=== PATIENT | female | born 1940 | race Caucasian/White ===

== ENCOUNTER 2016-06-19 17:18 | Emergency (ER) | payer OTHER ==
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
--- NOTE | 2016-06-19 18:11 | ED ORDER SUMMARY ---
..... Patient: THELMA BENJAMIN OrderSheet [facility] VisitID: [id number] [address] [place] [address] 75y, F Registration Date/Time: 06/19/2016 ORDER SHEET Weight: 110.6 kg (stated) Allergies: Arthritis medications, ABX not sure of name GENERAL ORDERS: MEDICATION ORDERS: Lidocaine Injection 1% plain (NOW) (17:35 06/19/2016 RJivens A.R.N.P.) (Ack 17:42 JBoardley R.N.) (17:55 JBoardley R.N.) Txvzphm-Ltelrx-Qbucy Pertussis IM 0.5 mL (NOW) (17:41 06/19/2016 Mildred R.N. per protocol) (17:42 JBoardley R.N.) IV FLUIDS: ORDER SHEET NOTES: [Electronically signed by Melisa Badillo R.N. (18:30 06/19/2016)] [Electronically signed by Shea AlmodovarR.N.PFab (19:03 06/19/2016)] [Electronically locked/signed by Melisa Badillo R.N. (18:30 06/19/2016)]
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
--- NOTE | 2016-06-19 18:11 | ED ORDER SUMMARY ---
..... Patient: THELMA BENJAMIN OrderSheet [facility] VisitID: [id number] [address] [place] [address] 75y, F Registration Date/Time: 06/19/2016 ORDER SHEET Weight: 110.6 kg (stated) Allergies: Arthritis medications, ABX not sure of name GENERAL ORDERS: MEDICATION ORDERS: Lidocaine Injection 1% plain (NOW) (17:35 06/19/2016 RJivens A.R.N.P.) (Ack 17:42 JBoardley R.N.) (17:55 JBoardley R.N.) Jmdrhga-Rpfyem-Wiyxq Pertussis IM 0.5 mL (NOW) (17:41 06/19/2016 Mildred R.N. per protocol) (17:42 JBoardley R.N.) IV FLUIDS: ORDER SHEET NOTES: [Electronically signed by Melisa Badillo R.N. (18:30 06/19/2016)] [Electronically signed by Shea AlmodovarR.N.PFab (19:03 06/19/2016)] [Electronically locked/signed by Melisa Badillo R.N. (18:30 06/19/2016)]
--- NOTE | 2016-06-19 19:04 | ED MAR SUMMARY ---
..... Medication Administration Record [facility] [address] [place] [address] Patient: THELMA BENJAMIN Visit ID: [id number] 75y, F Weight: 110.6 kg Height/Length: 60 in BMI: 47.6 ALLERGIES: ABX not sure of name, Arthritis medications Given 17:32 06/19/2016 Hayden Gutiérrez RMilady Medication Administered: IVOXZDJ-AGJKVR-ZLJRS PERTUSSIS [IM], Dose: 0.5 mL IM. Medication Ordered: Tjtpvyn-Ifksje-Dksuj Pertussis IM 0.5 mL (NOW). Given 17:40 06/19/2016 Hayden Gutiérrez RFabN. Medication Administered: LIDOCAINE [INJECTION], Dose: 1 % Injectable Injection. Medication Ordered: Lidocaine Injection 1% plain (NOW).
--- NOTE | 2016-06-19 19:04 | ED MED RECONCILIATION SUMMARY ---
Patient: THELMA BENJAMIN Medication Reconciliation Report [facility] VisitID: [id number] [place] [address] 75y, F Registration Date/Time: 06/19/2016 Weight: 110.6 kg Height/Length: 60 in. BMI: 47.6 ALLERGIES: ABX not sure of name, Arthritis medications The patient's Home Medications are listed below: THE FOLLOWING MEDICATIONS NEED TO BE RECONCILED: Allergy Oral (4 mg) 1 tablet, morning AmLODIPine Besylate Oral (10 mg) 1 tablet, daily Aspirin Oral (81 mg) 1 tablet, daily CoQ-10 Oral (100 mg) 1 capsule, daily Fish Oil Oral (1000 mg) 1 capsule, 2 x day Hydrochlorothiazide Oral (25 mg) 1 tablet, daily Levothyroxine Sodium Oral (50 mcg) 1 tablet, daily Lisinopril Oral (20 mg) 2 tablets, at bedtime Metoprolol Tartrate Oral (50 mg) 1 tablet, 2 x day Norvasc Oral (10 mg) 2 tablets, daily Omeprazole Oral (20 mg) 1 capsule, daily Potassium Chloride ER Oral (10 meq) 2 capsules, daily Pravastatin Sodium Oral (40 mg) 1 tablet, daily The source(s) of the original Home Medication information: Not obtained. The following Medications were given to the patient in the Emergency Department: NOBLULL-PLYIUL-SXXTT PERTUSSIS [IM] IM 0.5 mL, administered: 06/19/2016 5:32:00 PM Lidocaine [Injection] Injection 1 %, administered: 06/19/2016 5:40:00 PM The following Medications were prescribed to the patient: None.
--- NOTE | 2016-06-19 19:04 | ED MAR SUMMARY ---
..... Medication Administration Record [facility] [address] [place] [address] Patient: THELMA BENJAMIN Visit ID: [id number] 75y, F Weight: 110.6 kg Height/Length: 60 in BMI: 47.6 ALLERGIES: ABX not sure of name, Arthritis medications Given 17:32 06/19/2016 Hayden Gutiérrez RMilady Medication Administered: CCVGPJB-XUNTRB-ESEEA PERTUSSIS [IM], Dose: 0.5 mL IM. Medication Ordered: Hknvsxt-Fxcier-Gprsc Pertussis IM 0.5 mL (NOW). Given 17:40 06/19/2016 Hayden Gutiérrez RFabN. Medication Administered: LIDOCAINE [INJECTION], Dose: 1 % Injectable Injection. Medication Ordered: Lidocaine Injection 1% plain (NOW).
--- NOTE | 2016-06-19 19:04 | ED MED RECONCILIATION SUMMARY ---
Patient: THELMA BENJAMIN Medication Reconciliation Report [facility] VisitID: [id number] [place] [address] 75y, F Registration Date/Time: 06/19/2016 Weight: 110.6 kg Height/Length: 60 in. BMI: 47.6 ALLERGIES: ABX not sure of name, Arthritis medications The patient's Home Medications are listed below: THE FOLLOWING MEDICATIONS NEED TO BE RECONCILED: Allergy Oral (4 mg) 1 tablet, morning AmLODIPine Besylate Oral (10 mg) 1 tablet, daily Aspirin Oral (81 mg) 1 tablet, daily CoQ-10 Oral (100 mg) 1 capsule, daily Fish Oil Oral (1000 mg) 1 capsule, 2 x day Hydrochlorothiazide Oral (25 mg) 1 tablet, daily Levothyroxine Sodium Oral (50 mcg) 1 tablet, daily Lisinopril Oral (20 mg) 2 tablets, at bedtime Metoprolol Tartrate Oral (50 mg) 1 tablet, 2 x day Norvasc Oral (10 mg) 2 tablets, daily Omeprazole Oral (20 mg) 1 capsule, daily Potassium Chloride ER Oral (10 meq) 2 capsules, daily Pravastatin Sodium Oral (40 mg) 1 tablet, daily The source(s) of the original Home Medication information: Not obtained. The following Medications were given to the patient in the Emergency Department: PUZGGDJ-IMZNIY-EJPKX PERTUSSIS [IM] IM 0.5 mL, administered: 06/19/2016 5:32:00 PM Lidocaine [Injection] Injection 1 %, administered: 06/19/2016 5:40:00 PM The following Medications were prescribed to the patient: None.
--- NOTE | 2016-06-19 19:04 | ED DISCHARGE INSTRUCTIONS ---
Patient: THELMA BENJAMIN General Instructions [facility] VisitID: [id number] [place] [address] 75y, F Registration Date/Time: 06/19/2016 Single deep laceration to the left lower leg.Treatment of laceration not delayed. No infection or foreign body present. INSTRUCTIONS Protect wound and keep wound area clean. Change dressing twice daily. Soak in warm soapy water twice daily. Apply bacitracin twice daily. [place] should be removed in twelve days. Warnings: TETANUS: You were given a tetanus shot during your visit. Make a note for future reference. GENERAL WARNINGS: Return or contact your physician immediately if your condition worsens or changes unexpectedly, if not improving as expected, or if other problems arise. Specifically return if problem worsens. Follow-up: Follow up with your doctor in about three days even if well and for staple removal and wound check. Call for an appointment. Reason for referral: mervat need to be removed in approx 12 days. Summary of care provided to patient. Understanding of the discharge instructions verbalized by patient. ADDITIONAL INFORMATION Laceration (All Closures) Alaceration is a cut through the skin. This will usually require stitches (sutures) or mervat if it is deep. Minor cuts may be treated with a surgical tape closure orskin glue. Home care The following guidelines will help you care for your laceration at home: Extremity, face, or trunk wounds Keep the wound clean and dry. If a bandage was applied and it becomes wet or dirty, replace it. Otherwise, leave it in place for the first 24 hours. If stitches or mervat were used, clean the wound daily. After removing the bandage, wash the area with soap and water. Use a wet cotton swab to loosen and remove any blood or crust that forms. The doctor may prescribe an antibiotic cream or ointment to prevent infection. Do not stop taking this medication until you have finished the prescribed course or the doctor tells you to stop. The doctor may also prescribe medications for pain. Follow the doctors instructions for taking these medications. You may remove the bandage to shower as usual after the first 24 hours, but do not soak the area in water (no swimming) until the stitches or mervat are removed. If surgical tape was used, keep the area clean and dry. If it becomes wet, blot it dry with a towel. If skin glue was used, do not scratch, rub, or pick at the adhesive film. Do not place tape directly over the film. Do not apply liquid, ointment, or creams to the wound while the film is in place. Do not clean the wound with peroxide and do not apply ointments. Avoid activities that cause heavy sweating until the film has fallen off. Protect the wound from prolonged exposure to sunlight or tanning lamps. You may shower as usual but do not soak the wound in water (no baths or swimming). The film will fall off by itself in 510 days. Scalp wounds During the first two days, you may carefully rinse your hair in the shower to remove blood, glass or dirt particles. After two days, you may shower and shampoo your hair normally. Do not soak your scalp in the tub or go swimming until the stitches or mervat have been removed. Talk with your doctor before applying any antibiotic ointment to the wound. Mouth wounds Eat soft foods to reduce pain. If the cut is inside of your mouth, clean by rinsing after each meal and at bedtime with a mixture of equal parts water and hydrogen peroxide (do not swallow!). Or, you can use a cotton swab to directly apply hydrogen peroxide onto the cut. Mouth wounds can be painful when eating. You may use an [id number] local numbing solution for pain relief. If this is not available, you may use any numbing solution for teething babies. You may apply this directly to the sores with a cotton-tip swab or with your finger. Follow-up care Follow up with your health care provider. Most skin wounds heal within ten days. Mouth and facial wounds heal within five days. However, even with proper treatment, a wound infection may sometimes occur. Therefore, you should check the wound daily for signs of infection listed below. Stitches should be removed from the face within five days; stitches and mervat should be removed from other parts of the body within 714 days. If dissolving stitches were used in the mouth, these will fall out or dissolve without the need for removal. If tape closures were used, remove them yourself if they have not fallen off after 7 days. Ifskin glue was used, the film will fall off by itself in 510 days. When to seek medical care Get prompt medical attention if any of these occur: Bleeding not controlled by direct pressure Signs of infection, including increasing pain in the wound, increasing wound redness or swelling, or pus coming from the wound Fever of 100.4F (38C) or higher, or as directed by your health care provider Stitches or mervat come apart or fall out or surgical tape falls off before 7 days Wound edges re-open Laceration, Extremity (Sutures, [place], Or Tape) A laceration is a cut through the skin. This will usually require stitches (sutures) or mervat if it is deep. Minor cuts may be treated with surgical tape closures. Home care The following guidelines will help you care for your laceration at home: Keep the wound clean and dry. If a bandage was applied and it becomes wet or dirty, replace it. Otherwise, leave it in place for the first 24 hours, then change it once a day or as directed. If stitches or mervat were used, clean the wound daily: After removing the bandage, wash the area with soap and water. Use a wet cotton swab to loosen and remove any blood or crust that forms. After cleaning, keep the wound clean and dry. Talk with your doctor before applying any antibiotic ointment to the wound. Reapply the bandage. You may remove the bandage to shower as usual after the first 24 hours, but do not soak the area in water (no swimming) until the stitches or mervat are removed. If surgical tape closures were used, keep the area clean and dry. If it becomes wet, blot it dry with a towel. The doctor may prescribe an antibiotic cream or ointment to prevent infection. Do not stop taking this medication until you have finished the prescribed course or the doctor tells you to stop. The doctor may also prescribe medications for pain. Follow the doctors instructions for taking these medications. If you have chronic liver or kidney disease or ever had a stomach ulcer or GI bleeding, talk with your doctor before using these medicines. Follow-up care Follow up with your health care provider. Most skin wounds heal within ten days. However, an infection may sometimes occur despite proper treatment. Therefore, check the wound daily for the signs of infection listed below. Stitches and mervat should be removed within 714 days. If surgical tape closures were used, you may remove them after 10 days, if they have not fallen off by then. Notify your doctor if you notice persistent numbness or weakness in the injured extremity. (Note:A radiologist will review any X-rays that were taken. We will notify you of any new findings that may affect your care.) When to seek medical care Get prompt medical attention if any of these occur: Increasing pain in the wound Redness, swelling, or pus coming from the wound Fever of 100.4F (38C) or higher, or as directed by your health care provider If stitches or mervat come apart or fall out before your next appointment If the surgical tape closures fall off within seven days, or the wound edges re-open Bleeding not controlled by direct pressure Diphtheria Toxoid Adsorbed, Pertussis Vaccine, Acellular (Adsorbed), Tetanus Toxoid, Adsorbed Suspension for injection What is this medicine? DIPHTHERIA and TETANUS TOXOIDS; PERTUSSIS VACCINE (dif THEER ee uh and TET n us TOK soids; per TUS iss vak SEEN) is used to prevent diphtheria, tetanus, and pertussis infections. How should I use this medicine? This vaccine is for injection into a muscle. It is given by a health managed care analyst. A copy of Vaccine Information Statements will be given before each vaccination. Read this sheet carefully each time. The sheet may change frequently. Talk to your steel burner regarding the use of this vaccine in children. While the DTP vaccine may be given to children ages 6 weeks to 7 years and the Tdap vaccine may be given to children at least 10 years old, precautions do apply. What side effects may I notice from receiving this medicine? Side effects that you should report to your doctor or health managed care analyst as soon as possible: allergic reactions like skin rash, itching or hives, swelling of the face, lips, or tongue breathing problems fever of 103 degrees F or more flu-like symptoms inconsolable crying infection pain, tingling, numbness in the hands or feet seizures swelling of arm or leg that was injected unusually weak or tired Side effects that usually do not require immediate medical attention (report these side effects to your doctor or health managed care analyst if they continue or are bothersome): fussy, irritable loss of appetite fever of 102 degrees F or less pain, tenderness, redness, swelling, or a 'knot' at site where injected vomiting What may interact with this medicine? immune globulin medicines that suppress your immune function like adalimumab, anakinra, infliximab medicines to treat cancer medicines that treat or prevent blood clots like warfarin, enoxaparin, and dalteparin steroid medicines like prednisone or cortisone What if I miss a dose? It is important not to miss your dose. Call your doctor or health managed care analyst if you are unable to keep an appointment. Where should I keep my medicine? This drug is given in a hospital or clinic and will not be stored at home. What should I tell my health care provider before I take this medicine? They need to know if you have any of these conditions: blood disorders like hemophilia fever or infection immune system problems neurologic disease seizures an unusual or allergic reaction to vaccines, thimerosal, latex, other medicines, foods, dyes, or preservatives or trying to get breast-feeding What should I watch for while using this medicine? See your health care provider for all shots of this vaccine as directed. To have protection from infection, you must have 3 shots of this vaccine plus boosters as needed. Tell your doctor right away if you have any serious or unusual side effects after getting this vaccine. You have been given the following additional information: Laceration, All Laceration, Extrem (Suture, Staple, Or Tape) Diphtheria Toxoid Adsorbed, Pertussis Vaccine, Acellular (Adsorbed), Tetanus Toxoid, Adsorbed Suspension for injection (Electronically signed by Shea Almodovar A.R.N.P. 06/19/2016 19:03)
== END 2016-06-19 18:29 | disposition home or self-care (01) ==
LOC: ED SRH 17:18
DX: S81.812A Laceration without foreign body, left lower leg, initial encounter (principal); W25.XXXA Contact with sharp glass, initial encounter; Y93.89 Activity, other specified; Y92.009 Unspecified place in unspecified non-institutional (private) residence as the place of occurrence of the external cause; Y99.8 Other external cause status; I10 Essential (primary) hypertension; K21.9 Gastro-esophageal reflux disease without esophagitis; E03.9 Hypothyroidism, unspecified; E78.00 Pure hypercholesterolemia, unspecified; Z79.82 Long term (current) use of aspirin
CPT/HCPCS: 81663